=== PATIENT | male | born 1975 | race Hispanic/Latino ===

== ENCOUNTER 2024-09-05 01:16 | Emergency (ER) | payer OTHER ==
[~2024-09-05] VITALS: Ht 162.6 cm; Wt 70.3 kg
[2024-09-05 01:23] VITALS: PULSE 68; RESP 18; TEMP 98.3
[2024-09-05] MEDS: SODIUM CHLORIDE 0.9% 1000ML 1,000 ML IV STA (01:55)
[2024-09-05] MEDS: ONDANSETRON HCL INJ 2MG/ML 2ML 2 MG/ML VIAL IV ONE (01:55)
[2024-09-05] MEDS: FAMOTIDINE 20 MG/2 ML VIAL IV ONE (01:55)
[2024-09-05] MEDS: KETOROLAC TROMETHAMINE 30 MG/ML VIAL IV STA (01:56)
[2024-09-05] MEDS ORDERED: IOPAMIDOL 370 MG/ML 100 ML INFUS..BTL INJ ONE (02:03)
[2024-09-05] MEDS: HYDROCODONE/APAP 5MG-325MG TAB PO ONE (02:36)
[2024-09-05] MEDS ORDERED: MAALOX MAXIMUM355 ML PO (02:53)
[2024-09-05] MEDS ORDERED: OMEPRAZOLE40 MG PO (02:53)
[2024-09-05] MEDS ORDERED: DICYCLOMINE HCL20 MG PO (02:53)
[2024-09-05 03:00] VITALS: BP 149/93; PULSE 68; RESP 18; TEMP 98; O2SAT 100
== END 2024-09-05 03:00 | disposition home or self-care (01) ==
LOC: FSED 01:19
DX: R10.11 Right upper quadrant pain (principal); K29.70 Gastritis, unspecified, without bleeding; R53.1 Weakness
CPT/HCPCS: 74177; 80048; 80076; 81003; 85025; 96360; 96374; 96375; 99284; J1885; J2405; J7030; Q9967

== ENCOUNTER → 2024-12-14 | Day surgery (SDC) | payer OTHER ==
[~2024-12-14] MED LIST: DICYCLOMINE HCL20 MG PO; ESMOLOL HCL 100MG/10ML 10 MG/ML VIAL ONE; FENTANYL CITRATE/PF 100MCG/2 ML INJ ONE; HYOSCYAMINE SULFATE 0.5 MG/ML INJ ONE; LIDOCAINE HCL 2% LOCAL INJ 5 ML SDV VIAL INJ ONE; MAALOX MAXIMUM355 ML PO; METOCLOPRAMIDE HCL 10 MG/2ML VIAL ONE; OMEPRAZOLE40 MG PO; PROPOFOL IV EMULSION 50 ML IV ONE
[2024-12-14] MEDS: LACTATED RINGER'S 1,000 ML ONE (06:40)
[2024-12-14 10:10] VITALS: BP 105/77; PULSE 71; RESP 16; TEMP 97.8; O2SAT 98
== END | disposition home or self-care (01) ==
LOC: OR 06:16
PROVIDERS: ATTEND Internal Medicine Gastroenterology
DX: K29.70 Gastritis, unspecified, without bleeding (principal); K62.1 Rectal polyp; K31.89 Other diseases of stomach and duodenum; K20.90 Esophagitis, unspecified without bleeding; K44.9 Diaphragmatic hernia without obstruction or gangrene; K64.8 Other hemorrhoids; Z01.810 Encounter for preprocedural cardiovascular examination
CPT/HCPCS: 43239; 45385; 93005; J1980; J2003; J2470; J2704; J2765; J3010; J7121; 45378